=== PATIENT | female | born 1950 | race Caucasian/White ===

== ENCOUNTER → 2017-10-04 20:27 | Outpatient (CLI) | payer BC ==
[2014-02-16 09:59] VITALS: BMI 29.4
[~2017-10-04 20:27] MED LIST: ASPIRIN EC81 M1 PO; BENADRYL25 MG PO; CYMBALTA30 MG PO; FIRST-TESTOSTER60 G1 TP; FISH OIL 1,0001 CA1 PO; FLAXSEED OIL1000 MG PO; HYDROCODONE-APA1 TAB PO; LIDODERM 5 %1 PATCH TD; RESTORIL15 MG PO; TRANDATE100 MG PO; ZOFRAN8 MG PO; ZOVIRAX400 MG PO
== END | disposition home or self-care (01) ==
LOC: D.MAMMO 14:45
DX: Z12.31 Encounter for screening mammogram for malignant neoplasm of breast (principal)

== ENCOUNTER → 2018-03-04 10:24 | Outpatient (CLI) | payer MEDICARE ==
[2014-02-16 09:59] VITALS: BMI 29.4
[~2018-03-04 10:24] MED LIST changes: +NORCO 7.5/325 T1 TA1 PO; +NORMODYNE / TR200 MG PO; +PERCOCET 7.5/321 TAB PO; +PRAVACHOL40 MG PO; +SYNTHROID50 MCG PO; -TRANDATE100 MG PO; +VISTARIL50 MG PO; +VITAMIN B COMPL1 TAB PO
[2018-03-12 05:54] VITALS: BMI 28.8
== END | disposition home or self-care (01) ==
LOC: D.MRI 10:00
DX: M25.512 Pain in left shoulder (principal)

== ENCOUNTER → 2018-03-07 06:45 | Outpatient (CLI) | payer MEDICARE, OTHER ==
[2018-03-06 13:51] LABS: HEMATOCRIT 40.9 % (36.0-48.0); HEMOGLOBIN 13.6 g/dL (12-16); MCH 30.7 pg (26.0-34.0); MCHC 33.3 g/dL (31.0-37.0); MCV 92.3 fL (80.0-100.0); RBC 4.43 10x6/uL (4.00-5.40); RDW 12.8 % (11.5-14.5); WBC 5.3 10x3/uL (4.8-10.8)
[~2018-03-07] VITALS: Ht 157.5 cm; Wt 83.9 kg
--- NOTE | ~2018-03-07 | CN ---
PATIENT NAME:MARIELLA BLANKENSHIP MEDICAL RECORD: [id number] : 50 LOCATION:[facility] ADMIT DATE: ACCOUNT: [id number] CONSULTING PHYSICIAN: RAFA SAWYER MD REFERRING PHYSICIAN: CHELSEA KAPLAN DO DATE OF CONSULTATION: 03/07/2018 DIAGNOSES: 1. Chest pain. 2. Abnormal ECG. 3. Preoperative evaluation. 4. Contrast allergy. HISTORY OF PRESENT ILLNESS: Mrs. Blankenship presented for shoulder surgery. Her EKG yesterday had T-wave inversions anterolaterally. Today, these have resolved. She has been having some episodes of chest discomfort. She underwent cardiac catheterization approximately 5 years ago. There was no significant disease at that time. REVIEW OF SYSTEMS: The patient reports easy bruising but reports no swollen glands. The patient reports no fever, no night sweats, no significant weight gain, no significant weight loss. No significant exercise tolerance. The patient reports no dry eyes, no irritation, no vision change. Patient reports no difficulty hearing and no ear pain. Patient reports no frequent nose bleeds or nose and sinus problems. Patient reports on arm pain on exertion. No shortness of breath while lying down. No history of heart murmur. Patient reports no cough, no wheezing or coughing up blood. Patient reports no abdominal pain, no vomiting. Normal appetite. No diarrhea and not vomiting blood. No nausea and no constipation. Patient reports no incontinence. No difficulty urinating. No hematuria. No increased frequency. Patient reports no muscle aches. No weakness, no arthralgias, no back pain. No swelling of the extremities. Patient reports no abnormal mole, no jaundice, no rashes. Reports no loss of consciousness. No weakness and no numbness. No seizures, dizziness, or headaches. The patient reports no depression, no sleep disturbance, feeling safe in a relationship and no alcohol abuse. Patient reports on fatigue. Reports no runny nose or sinus pressure. No itching, no hives, and no frequent sneezing. PHYSICAL EXAMINATION: GENERAL APPEARANCE: Well-nourished, well-developed, appears stated age. Level of distress, comfortable. PSYCHIATRIC: Mental status, alert, normal affect. Orientation, oriented to time, place and person. EYES: Lids and conjunctiva, noninjected. No discharge, no pallor. ENT: Lips, teeth, gums, normal dentition. Oropharynx, no cyanosis, no pallor. NECK: Carotid arteries, bilateral normal upstroke, no bruits, no thrills. JUGULAR VEINS: No jugular venous pressure or distention. CERVICAL LYMPH NODES: Nontender, nonenlarged. THYROID: Not enlarged. Nontender. No nodules. LUNGS: Respiratory effort, unlabored. CHEST: Normal curvature. No thoracic deformity. No chest wall tenderness. Percussion, resonant. Auscultation, clear. No wheezes, no rales, no rhonchi. CARDIOVASCULAR: Precordial exam, nondisplaced. No heaves or pericardial thrills. Rate and rhythm, regular. Heart sounds, normal S1, normal S2. No S3, no gallop, no rub. Systolic murmur, not heard. Diastolic murmur, not heard. CONSULT REPORT [id number] MARIELLA BLANKENSHIP EXTREMITIES: No cyanosis, no edema. Peripheral pulses, full and equal in all extremities, except as noted. No bruits appreciated. ABDOMEN: Soft, nondistended. Normal aorta. No bruit. Nontender. No masses. Liver, nontender, no hepatomegaly. Spleen, nontender, no splenomegaly. MUSCULOSKELETAL: No joint tenderness. No joint swelling. No erythema. NEUROLOGICAL: Normal gait, normal strength, normal tone. SKIN: Warm and dry. OVERALL IMPRESSION: Markedly abnormal EKGs with changes. At this time, we will proceed with repeat coronary angiography. We will treat her with prednisone, Solu-Medrol and Pepcid for the contrast allergy. Further care depends upon the results of the catheterization. TRANSINT:[id number] Voice Confirmation ID: [id number] DOCUMENT ID: [id number] RAFA SAWYER MD at 1816 CC: [id number] DICTATION DATE: 03/07/18 1059 C IRON WORKER: 03/07/[address] [facility] [address] [place] [address]
--- NOTE | ~2018-03-07 | HEMODYNAMI ---
PATIENT:MARIELLA BLANKENSHIP MEDICAL RECORD: [id number] : 50 LOCATION:[facility] ADMISSION DATE: 03/07/18 Generatedon:03/07/201815:00 Patient name: MARIELLA BLANKENSHIP Patient #: [id number] SSN: : 1950 Date of study: 03/07/2018 Page: Of Hemodynamic Procedure Report Patient Data Patient Demographics Procedure consent was obtained First Name: MARIELLA Gender: Female Last Name: PATTIE : 1950 Middle Initial: YOUNG Age: 67 year(s) Patient #: [id number] Race: Unknown Ethnicity: or Additional ID: [id number] Contact details Address: [address] [place] [address] [address]REET State: [place] City: [facility] Zip code: [address] Past Medical History Allergies Allergen Reaction Date Comments Reported Penicillins 03/07/2018 IV contrast dye 03/07/2018 Morphine 03/07/2018 Admission Admission Data Admission Date: 03/07/2018 Admission Time: 6:45 Admit Source: Other Procedure Procedure Types Cath Procedure Diagnostic Procedure LHC LHC w/Coronaries Procedure Description Procedure Date Procedure Date: 03/07/2018 Procedure Start Time: 14:50 Procedure End Time: 14:58 Procedure Staff Name Function Hi Christy MD Performing Physician Fatou Freeman RT Monitor Pino Torrez RT Scrub Randall Kurtz RN Nurse Procedure Data Cath Procedure Fluoroscopy Diagnostic fluoroscopy Total fluoroscopy Time: 0.8 time: 0.8 min min Diagnostic fluoroscopy Total fluoroscopy dose: 328 dose: 328 mGy mGy Contrast Material Contrast Material Type Amount (ml) Isovue 370 51 Entry Location Entry Primary Successful Side Size Upsize Upsize Entry Closure Succes sful Closure Location (Fr) 1 (Fr) 2 (Fr) Remarks Device Remarks Femoral Right 5 Fr Exoseal artery Estimated blood loss: 5 ml Diagnostic catheters Device Type Used For End Catheter Placement MULTIPACK Pigtail 5 Fr LV Angiography catheter MULTIPACK JL 4.0 5Fr Left Coronary catheter Angiography MULTIPACK 3DRC 5Fr Right Coronary catheter Angiography Procedure Complications No complications Procedure Medications Medication Administration Route Dosage 0.9% NaCl I.V. 100 ml/hr Heparin Flush Bag added to field 2 bags (1000units/500ml NS) Lidocaine 2% added to field 20 Oxygen etCO2 Nasal cannula 2 l/min Benadryl I.V. 50 mg Versed I.V. 2 mg Fentanyl I.V. 100 mcg Versed I.V. 2 mg Fentanyl I.V. 50 mcg Hemodynamics Rest Pre Cath Intra NCS Post Cath Vital Signs Time Heart Resp SPO2 etCO2 NIBP (mmHg) Rhythm Pain Sedation Rate (ipm) (%) (mmHg) Status Level (bpm) 14:42:41 63 12 94 0 172/94(120) NSR 0 (11) 10(A) , No pain 14:48:19 61 12 98 19.5 155/89(122) NSR 0 (11) 10(A) , No pain 14:52:57 61 10 96 13.5 146/91(109) NSR 0 (11) 9(A) , No pain 14:57:42 62 10 96 34.6 152/81(121) NSR 0 (11) 9(A) , No pain Medications Time Medication Route Dose Verified Delivered Reason Notes Eff ectiveness by by 14:41:10 0.9% NaCl I.V. 100 Randall Randall Per ml/hr Jerardo Kurtz physician RN RN 14:41:26 Heparin Flush added 2 Randall Randall used for Bag to bags Lorigan Lorigan procedure (1000units/500ml field RN RN NS) 14:41:36 Lidocaine 2% added 20ml Randall Randall for local to vial Lorigan Lorigan anesthetic field RN RN 14:41:56 Oxygen etCO2 2 Randall Randall Per Nasal l/min Lorigan Lorigan physician cannula RN RN 14:42:16 Benadryl I.V. 50 mg Randall Randall Per Lorigan Lorigan physician RN RN 14:48:39 Versed I.V. 2 mg Randall Randall for Lorigan Lorigan sedation RN RN 14:48:46 Fentanyl I.V. 100 Randall Randall for mcg Lorigan Lorigan sedation RN RN 14:50:04 Versed I.V. 2 mg Randall Randall for Lorigan Lorigan sedation RN RN 14:50:12 Fentanyl I.V. 50 Randall Randall for [facility] Jerardo Kurtz sedation RN pipe smoker machine operator Log Time Note 14:16:35 Informed consent obtained and on chart 14:16:38 Admit Source: Other 14:17:31 Diagnostic Cath status Elective 14:17:32 Randall Kurtz RN sent for patient. Start room use. 14:17:33 Time tracking: Regular hours (M-F 7:00 - 5:00) 14:17:36 Plan of Care:Hemodynamics will remain stable., Cardiac rhythm will remain stable., Comfort level will be maintained., Respiratory function will remain adequate., Patient/ family verbilizes understanding of procedure., Procedure tolerated without complication., Recovers from procedure without complications.. 14:31:48 Patient received from Outpatients to CCL 1 Alert and oriented. Tansferred to table in Supine position. 14:31:49 Warm blankets applied, and karoline hugger turned on for patient comfort. 14:31:50 Correct patient and procedure confirmed by team. 14:31:50 ECG and BP/O2 sat monitors applied to patient. 14:32:00 Pre-procedure instructions explained to patient. 14:32:00 Pre-op teaching completed and patient verbalized understanding. 14:32:02 Family in waiting room. 14:32:03 Patient NPO since Midnight. 14:41:10 0.9% NaCl 100 ml/hr I.V. was administered by Randall Kurtz RN; Per physician; 14:41:26 Heparin Flush Bag (1000units/500ml NS) 2 bags added to field was administered by Randall Kurtz RN; used for procedure; 14:41:36 Lidocaine 2% 20ml vial added to field was administered by Randall Kurtz RN; for local anesthetic; 14:41:40 Vital chart was started 14:41:45 Rhythm: sinus rhythm 14:41:47 Full Disclosure recording started 14:41:56 Oxygen 2 l/min etCO2 Nasal cannula was administered by Randall Kurtz RN; Per physician; 14:42:16 Benadryl 50 mg I.V. was administered by Randall Kurtz RN; Per physician; 14:42:31 H&P Date Dictated: 03/07/2018 Within 30 days and on chart.. 14:44:48 Patient allergic to Penicillins 14:44:57 Patient allergic to IV contrast dye 14:45:05 Patient allergic to Morphine 14:45:29 Is the patient allergic to Iodine/contrast media? Yes. 14:45:30 Was the patient premedicated? Yes 14:45:34 Is patient on blood thinner?No 14:46:57 Patient diabetic? No. 14:47:00 Previous problem with sedation/anesthesia? No ? 14:47:01 Snore? Yes 14:47:02 Sleep apnea? No 14:47:02 Deviated septum? No 14:47:03 Opens mouth fully? Yes 14:47:04 Sticks out tongue? Yes 14:47:06 Airway obstruction? No ? 14:47:07 Dentures? No ? 14:47:09 Pre procedure: right dorsailis pedis pulse 2+ Normal; easily identifiable; not easily obliterated 14:47:17 IV patent on arrival in left hand with 0.9% NaCl at O. 14:47:18 Patient pain scale 0/10 ?. 14:47:23 Lab results completed and on chart. 14:47:25 Right groin area was prepped with chlora-prep and draped in sterile fashion 14:47:26 Alarms reviewed by R. N. 14:47:26 Sharps counted by scrub and verified by R.N. 14:47:27 Final Timeout: patient, procedure, and site verified with staff and physician. All members of the team are in agreement. 14:47:29 Right groin site verified by team. 14:47:32 Physical assessment completed. ASA score P 2 - A patient with mild systemic disease as per Hi Christy MD. 14:47:39 Sedation plan: IV Moderate Sedation Medication:Versed, Fentanyl 14:47:43 Use device set Femoral Dx 14:47:44 ACIST Syringe (37909) opened to sterile field. 14:47:45 Bag Decanter (2002) opened to sterile field. 14:47:45 Medline Cath Pack ([id number]) opened to sterile field. 14:47:46 DIAGNOSTIC WIRE .035 260cm J wire (820110) opened to sterile field. 14:47:47 ACIST Hand Control (81181) opened to sterile field. 14:47:47 ACIST Manifold (00239) opened to sterile field. 14:47:48 DIAGNOSTIC Multipack 5Fr catheter set (QI1909) opened to sterile field. 14:47:49 Tegaderm 4 x 4 (1626W) opened to sterile field. 14:47:50 SHEATH Prelude 5Fr 0.035 (KVQ-5J-36-035) opened to sterile field. 14:48:39 Versed 2 mg I.V. was administered by Randall Kurtz RN; for sedation; 14:48:46 Fentanyl 100 mcg I.V. was administered by Randall Kurtz RN; for sedation; 14:50:04 Versed 2 mg I.V. was administered by Randall Kurtz RN; for sedation; 14:50:12 Fentanyl 50 mcg I.V. was administered by Randall Kurtz RN; for sedation; 14:50:33 Procedure started. 14:50:36 Local anesthetic to right femoral artery with Lidocaine 2% by Hi Christy MD.INITIAL ACCESS ONLY 14:50:37 Zero performed for pressure channel P1 14:51:12 A 5 Fr sheath was inserted into the Right Femoral artery 14:51:34 A MULTIPACK Pigtail 5 Fr catheter was advanced over the wire and used for LV Angiography. 14:52:05 LV gram done using YU 14:52:08 Injector settings: Ml/sec: 10, Volume: 20, 14:52:13 EF : 60 % 14:52:14 Catheter removed. 14:52:20 A MULTIPACK JL 4.0 5Fr catheter was advanced over the wire and used for Left Coronary Angiography. 14:53:11 Catheter removed. 14:53:27 A MULTIPACK 3DRC 5Fr catheter was advanced over the wire and used for Right Coronary Angiography. 14:54:06 Catheter removed. 14:54:09 EXOSEAL 5Fr (EX500) opened to sterile field. 14:54:22 Sheath removed intact; hemostasis achieved with Exoseal to the Right Femoral artery. 14:54:23 Procedure ended.(Physican Out) 14:55:23 Fluoroscopy time 00.80 minutes. 14:55:26 Fluoroscopy dose: 328 mGy 14:55:26 Flurop Dose total: 328 14:55:31 Contrast amount:Isovue 370 51ml. 14:55:33 Sharps counted by scrub and verified by R.N. 14:55:34 Insertion/operative site no bleeding no hematoma. 14:55:36 Post-op/insertion site Right Femoral artery dressed using a 4 x 4 and Tegaderm. 14:55:40 Post right femoral artery:stable, clean and dry 14:55:41 Post Procedure Pulses reassessed and unchanged 14:55:44 Post-procedure physical assessment completed. ASA score P 2 - A patient with mild systemic disease as per Hi Christy MD. 14:55:46 Post procedure rhythm: unchanged. 14:55:49 Estimated blood loss: 5 ml 14:55:51 Post procedure instruction explained to patient.Patient verbalizes understanding. 14:55:51 Patient needs reinforcement of post procedure teaching. 14:55:59 Procedure Complication : No complications 14:56:14 See physician's report for complete and final results. 14:57:48 Procedure and supply charges have been captured, reviewed, submitted and are correct. 14:57:54 Vital chart was stopped 14:57:56 Report given to Pre/Post Procedure Room. 14:57:58 Patient transfered to Pre/Post Procedure Room with Stretcher. 14:58:06 Procedure ended. 14:58:06 Full Disclosure recording stopped 14:58:09 End room use (Document Last) Device Usage Item Name Manufacture Quantity Catalog Number Hospital Part Current M inimal Lot# / Charge Number Stock Stock Serial# Code ACIST Syringe Acist 1 91072 246200 [id number] [id number] 2 0 (06266) [employer] Bag Decanter Microtek 1 578561 41590 881224 5 () Medical Inc. Medline Cath Cardinal 1 [id number] 918238 01718 006516 5 Pack Health ([id number]) DIAGNOSTIC WIRE [address] [place] 1 450233 373190 700833 884487 3 0 .035 260cm J wire (353413) ACIST Hand Acist 1 29848 049691 768832 055268 5 Control (19515) [employer] Inc ACIST Manifold Acist 1 49246 935530 598276 538935 5 (92483) [employer] Inc DIAGNOSTIC Cardinal 1 [id number] 931800 52988 723832 3 0 Multipack 5Fr Health catheter set (SW3301) Tegaderm 4 x 4 3M 1 1626W 945574 188417 938356 5 (1626W) SHEATH Prelude Merit 1 VMW-5O-16-035 799166 661939 957741 5 5Fr 0.035 Medical (FLP-3T-81-035) MULTIPACK Cardinal 1 969420 5 Pigtail 5 Fr Health catheter MULTIPACK JL Cardinal 1 297014 5 4.0 5Fr Health catheter MULTIPACK 3DRC Cardinal 1 [id number] 5 5Fr catheter Health EXOSEAL 5Fr Cardinal 1 EX500 513009 128961 652403 1 0 (EX500) Health Signature Audit [place] Stage Time Signature Unsigned Intra-Procedure 03/07/2018 Fatou 3:00:54 PM Counts RT(R) Signatures Monitor : Fatou Signature : Counts RT Date : Time : [place] [id number] [place] [address]
--- NOTE | ~2018-03-07 | OP ---
PATIENT NAME: MARIELLA BLANKENSHIP MEDICAL RECORD: [id number] :50 LOCATION:[facility] ADMISSION DATE: SURGEON: RAFA SAWYER MD DATE OF OPERATION: 03/07/2018 DATE OF SERVICE: 03/07/2018 PROCEDURES: 1. Left heart catheterization. 2. Selective coronary angiography. 3. Left ventriculogram. DESCRIPTION OF PROCEDURE: After informed consent was obtained and after a detailed description of risks, benefits as well as alternative therapies, the patient elected to proceed with angiogram. The right femoral area was prepped and draped in normal sterile fashion. The right femoral artery was cannulated via modified Seldinger technique with placement of 5-Slovak sheath. All catheters exchanged through this sheath. FINDINGS: Left ventriculogram was performed in standard 30-degree YU view, reveals good cardiac wall motion throughout all segments. Overall ejection fraction is estimated at 60%. SELECTIVE CORONARY ANGIOGRAPHY: Left main, left anterior descending, left circumflex, right coronary artery are all smooth-walled vessels with no angiographic evidence of coronary artery disease. OVERALL IMPRESSION: 1. No angiographic evidence of coronary artery disease. 2. Normal left heart pressures. 3. Normal left ventricular systolic function. Symptomatology is noncardiac in etiology. No further cardiac workup needs to be ascertained. TRANSINT:[id number] Voice Confirmation ID: [id number] DOCUMENT ID: [id number] RAFA SAWYER MD at 1816 CC: [id number] DICTATION DATE: 03/07/18 1500 WEATHERIZATION TECHNICIAN: 03/07/18 1522 REG [facility] [address] [place] [address]
[2018-03-07 08:48] VITALS: BP 123/70; Ht 157.5 cm; Wt 83.9 kg
== END | disposition home or self-care (01) ==
LOC: D.OPS 06:45 → D.PAN 08:45 → EDSTATUS 08:45 → D.OPS 08:45 → D.PAN 09:30 → D.OPS 09:30
PROVIDERS: Anesthesiology
DX: R07.9 Chest pain, unspecified (principal); R94.31 Abnormal electrocardiogram [ECG] [EKG]; M25.512 Pain in left shoulder; Z91.041 Radiographic dye allergy status; Z01.812 Encounter for preprocedural laboratory examination; Z01.810 Encounter for preprocedural cardiovascular examination

== ENCOUNTER 2018-03-12 05:31 | Day surgery (SDC) | payer MEDICARE, OTHER ==
[2018-03-11 11:57] VITALS: BMI 28.8
[~2018-03-12] VITALS: Ht 175.3 cm; Wt 88.5 kg
--- NOTE | ~2018-03-12 | OP ---
PATIENT NAME: MARIELLA RICE MEDICAL RECORD: [id number] :50 LOCATION:[facility] ADMISSION DATE: SURGEON: CHELSEA KAPLAN DO DATE OF OPERATION: 03/12/2018 PROCEDURE PERFORMED: Left shoulder arthroscopy with subacromial decompression, distal clavicle excision, and mini open rotator cuff repair with biceps tenodesis. PREOPERATIVE DIAGNOSES: Left shoulder rotator cuff tear, subacromial impingement, AC joint arthritis, and superior labral anterior and posterior tear. POSTOPERATIVE DIAGNOSES: Left shoulder rotator cuff tear, subacromial impingement, AC joint arthritis, and superior labral anterior and posterior tear. INDICATIONS: Ms. Rice is a 67-year-old female, who presented to my office with left shoulder pain. She said she has had a right rotator cuff tear in the past and this felt similar. It had been hurting her for quite some time. We got an MRI done, which indeed showed the rotator cuff tear as well as severe AC joint arthritis. I told her I will take a look at her labrum as well due to the fact that she had a positive test that aggravated it. I suspect a SLAP tear as well as the subacromial impingement. She has been through a shoulder scope before and I informed her of the risks and benefits of this one and the pre and postop protocols, and she was okay with proceeding forward with the procedure. DESCRIPTION OF PROCEDURE: The patient was given a block in preoperative area by anesthesia, given 900 mg of clindamycin prior to starting the surgery, taken to the operative suite, laid in the right lateral recumbent position with the left arm up with an axillary roll placed in the axilla and on the beanbag. The beanbag was inflated. LMA was placed and then the left shoulder was prepped and draped in sterile fashion. A time-out was performed and everyone was in agreement with correct side, site, patient, and procedure. Once this was done, the procedure began with an 18-gauge needle inserting from the posterior aspect of the shoulder, entered through the shoulder joint and was inflated with 60 mL of normal saline, and the posterior portal was established with 11-blade scalpel, and a trocar was entered into the shoulder, and water was turned on. The shoulder joint was inspected and did not appear to have any chondral defects noted in the humerus or the glenoid. The labrum was inspected and seen to have a tear at the superior portion, anterior and posterior and the bicep tendon was frayed somewhat. The subscapularis tendon was also inspected and seen to be intact on the humeral insertion. Then, the anterior portal was established with an 18-gauge needle, and an 11-blade scalpel and then trocar was entered into the joint, and the burner was used to do the bicep tenotomy. At that point, the rotator cuff was inspected. The infraspinatus was intact, but the supraspinatus did have a tear with fraying on the articular side greater than 50% through the tendon. Once this was inspected and the inferior gutter was inspected as well, no loose bodies seen there. The trocar was moved to the subacromial space and entered. There was quite a lot of bursa inflamed there. Bursectomy was done after the lateral portal was established with an 18-gauge needle and an 11-blade scalpel, and then the acromion was cleaned off with a burner. After the acromion was cleaned off, the rotator cuff tear was encountered on the bursal side, which communicated through to the full-thickness tear of the supraspinatus. There was also a large spur in the AC joint that was rubbing on OPERATIVE REPORT [id number] MARIELLA RICE the cuff as well as a large spur on the lateral acromion. This was shaved off with a shaver and then through the anterior portal with a bur, the AC distal clavicle bone was excised providing about 7 mm of space in between that and the acromion. AC joint was cleaned out. Once this was completed and the bursectomy was done, the scope was removed and a small mini incision was made over the lateral portal and careful dissection was made down through the deltoid. The deltoid was split and the [employer] were held to retract it. The rotator cuff tear was encountered and a single anchor was placed into the humerus after the greater tuberosity was shaved down in order to create bleeding surface. Then, the anchor was entered at the articular margin. Once the anchor was entered into the humerus, the rotator cuff was sutured using a scorpion needle and the sutures were passed from the anchor through the rotator cuff. Then, the 2 lateral anchors were used to tie it down and we got a good compression and a very harris repair. These anchors were entered on the lateral row and then the extra sutures were cut. The rotator cuff was then inspected and seen to be in good repair and then attention was drawn to the biceps tenodesis portion and to the anterior humerus. A small incision was made just below the pec and a careful dissection was made down to the humerus itself and the bicep tendon that had been tenotomized before was pulled out of the wound, whipstitched and an anchor with single button was placed unicortically into the humerus and then tightened down to pull the tension on the bicep tendon. Then, this was tied down and oversewn into the bicep tendon itself with a free needle and this was tied down, and the sutures and excess tendon were cut at that time. These wounds were thoroughly irrigated with normal saline, and the biceps tenodesis site was closed with 2-0 Vicryl and 4-0 Monocryl running on the skin. The larger mini open wound for the rotator cuff repair was deltoid fascia, was closed with 0 Vicryl and then 2-0 Vicryl on the skin in inverted interrupted and 4-0 Monocryl was running on the skin layer and then 4-0 Monocryl in inverted interrupted fashion was used to close the posterior portal and anterior portal. It was then dressed with 4 x 4s and Tegaderm. The patient was put in a sling, awakened, and taken to recovery in stable condition. Blood loss was minimal. Complications were none. TRANSINT:[id number] Voice Confirmation ID: [id number] DOCUMENT ID: [id number] CHELSEA KAPLAN DO at 1425 CC: [id number] DICTATION DATE: 03/12/18 0931 DIRECTOR INDUSTRIAL RELATIONS: 03/12/18 1103 [facility] 03/12/18 [place] [address] [place] [id number]
[~2018-03-12 05:31] MED LIST changes: -PERCOCET 7.5/321 TAB PO; -VISTARIL50 MG PO
[2018-03-12 05:54] VITALS: BP 133/91; Ht 175.3 cm; Wt 88.5 kg
[2018-03-12] MEDS ORDERED: VISTARIL50 MG PO (09:20)
[2018-03-12] MEDS ORDERED: PERCOCET 7.5/321 TAB PO (09:21)
== END 2018-03-12 13:40 | disposition home or self-care (01) ==
LOC: D.OPS 05:31
DX: M75.122 Complete rotator cuff tear or rupture of left shoulder, not specified as traumatic (principal)

== ENCOUNTER → 2018-11-21 07:50 | Outpatient (CLI) | payer MEDICARE, OTHER ==
[2018-03-12 05:54] VITALS: BMI 28.8
[~2018-11-21 07:50] MED LIST changes: +PERCOCET 7.5/321 TAB PO; +VISTARIL50 MG PO
== END | disposition home or self-care (01) ==
LOC: D.RAD 07:50
PROVIDERS: ATTEND Clinical Nurse Specialist Family Health
DX: M25.512 Pain in left shoulder (principal)

== ENCOUNTER → 2018-11-24 10:38 | Outpatient (CLI) | payer MEDICARE, OTHER ==
[2018-03-12 05:54] VITALS: BMI 28.8
== END | disposition home or self-care (01) ==
LOC: D.MRI 10:38
PROVIDERS: ATTEND Nurse Practitioner Family
DX: S46.002D Unspecified injury of muscle(s) and tendon(s) of the rotator cuff of left shoulder, subsequent encounter (principal)

== ENCOUNTER → 2019-08-11 19:00 | Outpatient (CLI) | payer MEDICARE, OTHER ==
[2018-03-12 05:54] VITALS: BMI 28.8
== END | disposition home or self-care (01) ==
LOC: D.MAMMO 16:15
PROVIDERS: ATTEND Family Medicine
DX: Z12.31 Encounter for screening mammogram for malignant neoplasm of breast (principal)